=== PATIENT | female | born 1980 | race Caucasian/White ===

== ENCOUNTER 2023-09-15 17:12 | Emergency (ER) | payer OTHER ==
[~2023-09-15] VITALS: Ht 162.6 cm; Wt 65.8 kg
[2023-09-15] MEDS ORDERED: FOLIC ACID1 MG PO (17:22)
[2023-09-15] MEDS ORDERED: CLONIDINE HCL0.1 MG PO (17:22)
[2023-09-15] MEDS ORDERED: THIAMINE HCL100 MG PO (17:22)
[2023-09-15] MEDS ORDERED: HYOSCYAMINE0.125 M1 SL (17:23)
[2023-09-15] MEDS ORDERED: TRAZODONE HCL100 MG PO (17:24)
[2023-09-15] MEDS ORDERED: MELATONIN1 MG PO (17:24)
[2023-09-15] MEDS ORDERED: HYDROXYZINE HCL50 MG PO (17:25)
[2023-09-15 17:45] LABS: BASOPHILS 1.2 % (0-2); HEMOGLOBIN 14.7 g/dL (12.0-18.0); LYMPHOCYTES 27.8 % (24-44); MCH 34.1 (27-36); MCHC 33.5 g/dl (30-36); MCV 101.9 fl (81-99); PLATELET COUNT 228 K/uL (140-440); RBC 4.32 M/ul (4.3-5.7)
[2023-09-15 17:55] LABS: ALBUMIN 3.1 g/dL (3.4-5.0); ALBUMIN/GLOBULIN RATIO 1.07 (1.1-2.4); ANION GAP 10.9 (7-21); BILIRUBIN, TOTAL 0.4 ng/dL (0.2-1.0); BUN/CREATININE RATIO 5.31 (6.0-28.6); CALCIUM 9.1 mg/dL (8.5-10.1); CREATININE, SERUM 0.94 mg/dL (0.55-1.02); MAGNESIUM 1.9 mg/dL (1.8-2.4); POTASSIUM 3.9 mmol/L (3.5-5.1)
[2023-09-15 20:05] VITALS: BP 133/81
== END 2023-09-15 20:20 | disposition home or self-care (01) ==
LOC: ED 17:12
PROVIDERS: Family Medicine
DX: F11.23 Opioid dependence with withdrawal (principal); F10.139 Alcohol abuse with withdrawal, unspecified; Z79.899 Other long term (current) drug therapy
CPT/HCPCS: 36415; 80053; 80307; 83690; 83735; 85025; A9270; J2060; J2405; J3411; J3490; J7042